=== PATIENT | female | born 1975 | race Caucasian/White ===

== ENCOUNTER → 2020-09-25 15:17 | Outpatient (CLI) | payer BC, SELFPAY ==
--- NOTE | ~2020-09-25 | US_ITS ---
EXAMINATION: US transvaginal DATE: 09/25/2020 15:43 INDICATION: Abnormal uterine bleeding Comparison:No prior studies for comparison. TECHNIQUE: Multiple endovaginal sonographic images of the pelvis performed. FINDINGS: The uterus measures 7.7 x 4.2 x 5.5 cm. There is a small uterine fibroid at the fundus bren uring 11 mm. The endometrial complex measures 8 mm. The right ovary measures 3.6 x 3.1 x 4.9 cm and the left ovary measures 2.9 x 2 x 2.6 cm. There is a 2.6 cm right ovarian cyst. There are small follicles in each ovary. There is no free fluid in the pelvis. There are no abnormal masses seen on either side. IMPRESSION: 1. 2.6 cm right ovarian cyst. 2: Uterine fibroid measuring 11 mm. Reviewed, dictated and finalized at location [facility]. [facility]
== END ==
PROVIDERS: Visit Provider Obstetrics & Gynecology
DX: N93.8 Other specified abnormal uterine and vaginal bleeding (principal); N83.201 Unspecified ovarian cyst, right side; D25.9 Leiomyoma of uterus, unspecified
CPT/HCPCS: 76830

== ENCOUNTER → 2021-04-01 02:04 | Outpatient (CLI) | payer BC, SELFPAY ==
[2021-04-01 23:32] LABS: SARS-CoV-2 RNA PCR Negative
== END ==
PROVIDERS: Visit Provider Obstetrics & Gynecology
DX: Z01.812 Encounter for preprocedural laboratory examination (principal); Z20.822 Contact with and (suspected) exposure to COVID-19
CPT/HCPCS: C9803; U0003; U0005

== ENCOUNTER 2021-04-01 13:21 | Outpatient (CLI) | payer BC, SELFPAY ==
--- NOTE | 2021-04-01 13:15 | ECG_ITS ---
Measurements Intervals [place] Rate: 73 P: 39 DC: 173 QRS: 14 QRSD: 104 T: 30 QT: 393 QTc: 435 Interpretive Statements SINUS RHYTHM VENTRICULAR PREMATURE COMPLEX CONSIDER INFERIOR INFARCT, AGE INDETERMINATE BORDERLINE T WAVE ABNORMALITY- ANTERIOR LEADS BASELINE ARTIFACT- I, II, III, AVR, AVL, AVF ABNORMAL ECG Electronically Signed On 04-01-2021 19:07:55 CDT by Lenin Suresh D.O.
[2021-04-01 14:37] LABS: Anion Gap 11 mmol/L (8-16); Blood Urea Nitrogen 7 mg/dL (7-17); Calcium 9.4 mg/dL (8.4-10.2); Carbon Dioxide 26 mmol/L (22-30); Chloride 105 mmol/L (98-107); Estimated Glomerular Filt Rate > 60; Glucose 116 mg/dL (65-105); Potassium 4.1 mmol/L (3.4-5.0); Sodium 142 mmol/L (137-145)
== END 2021-04-01 13:22 | disposition home or self-care (01) ==
LOC: ANHSURGERY 13:25
PROVIDERS: Anesthesiology; PCP Physician Assistant; Visit Provider Obstetrics & Gynecology
DX: N93.9 Abnormal uterine and vaginal bleeding, unspecified (principal); E11.9 Type 2 diabetes mellitus without complications; Z01.818 Encounter for other preprocedural examination; R94.31 Abnormal electrocardiogram [ECG] [EKG]
CPT/HCPCS: 36415; 80048; 86850; 86900; 86901; 93005

== ENCOUNTER 2021-04-04 00:13 | Day surgery (SDC) | payer BC, SELFPAY ==
[2021-03-27 14:49] VITALS: BMI 33.7
--- NOTE | 2021-04-03 14:34 | WPDANESEPPF ---
Anes - Initial Pre Proc Eval Procedure: Operation Date: 04/04/21 12:00 Proposed Procedures p Laparoscopic Assisted Vaginal Hysterectomy - Alfred Wright MD Date/Time: 04/03/21 14:34 Surgeon: Alfred Wright MD Pre Op Diagnosis: Abnormal Uterine Bleeding Patient Data Age: 45 Gender: F Height: 1.78 m Weight: 106.81 kg Allergies Allergy/AdvReac Type Severity Reaction Status Date / Time Sulfa (Sulfonamide Allergy Unknown rash, sob Verified 03/27/21 14:20 Antibiotics) sulfamethizole Allergy Unknown Dyspnea / Verified 03/27/21 14:20 SOB trimethoprim Allergy Unknown Dyspnea / Verified 03/27/21 14:20 SOB Home Medications Medication Instructions Recorded Confirmed Type albuterol sulfate [Ventolin HFA] 2 puff INHALATION QID #8 gm 09/23/19 03/27/21 Rx desvenlafaxine succinate [Pristiq] 100 mg PO DAILY 09/23/19 03/27/21 History metformin 500 mg PO BID 09/23/19 03/27/21 History coenzyme Q10 [CoQ-10] 100 mg PO DAILY 03/27/21 03/27/21 History norethindrone-e.estradiol-iron [Lo 1 tablet PO DAILY 03/27/21 03/27/21 History Loestrin Fe] rosuvastatin 10 mg PO DAILY 03/27/21 03/27/21 History Patient hx anesthesia problems: none Family hx anesthesia problems: none PMFSH Past Medical History Medical History (Updated 04/04/21 @ 09:45 by Alfred Wright MD) Abnormal uterine bleeding (AUB) Anxiety Chronic GERD Depression Hypercholesterolemia Leiomyoma Obesity PCOS (polycystic ovarian syndrome) Surgical History Surgical History H/O tubal ligation History of tonsillectomy and adenoidectomy Family History Family History Father Hypertension Other Diabetes mellitus Family history of cardiovascular disease Social History Social History Smoking status: Never smoker Alcohol intake: current Alcohol use details: 2 drinks a month Substance use: never Living arrangements: with family Spiritual care concerns: No Anes - Eval Final PreProcedure Day of Procedure 04/03/21 14:34 Patient weight: obese Heart: regular rate and rhythm Lungs: clear to auscultation and normal air movement Airway: Mallampati scale class II Neurological: alert and oriented Last oral intake: >/= 8 hours ASA classification: III Emergent: no Anesthetic plan: proceed Anesthesia type and monitoring: general ETT Informed Consent: The patient's anesthetic plan and its attendant risks and benefits were discussed with the patient/family/POA. Questions were solicited and answers provided to the satisfaction of the patient/family/POA.
[2021-04-04] VITALS (9 sets, daily range): BP systolic 101–141; BP diastolic 67–101; PULSE 65–90; RESP 14–19; TEMP 36.6–36.9; O2SAT 92–100
--- NOTE | 2021-04-04 09:33 | PM.IMHP ---
H&P: HPI History of Present Illness Date/Time: 04/04/21 09:33 45 y/o with a history of irregular heavy cycles. patient has a history of PCOS and has tried ocp therapy in the past and failed. Patient desires hysterectomy Chief Complaint: irregular bleeding Review of Systems Constitutional: Constitutional: Reports fatigue PMF Past Medical History Medical History (Updated 04/04/21 @ 09:45 by Alfred Wright MD) Abnormal uterine bleeding (AUB) Anxiety Chronic GERD Depression Hypercholesterolemia Leiomyoma Obesity PCOS (polycystic ovarian syndrome) Surgical History Surgical History H/O tubal ligation History of tonsillectomy and adenoidectomy Family History Family History Father Hypertension Other Diabetes mellitus Family history of cardiovascular disease Social History Social History Smoking status: Never smoker Alcohol intake: current Alcohol use details: 2 drinks a month Substance use: never Living arrangements: with family Spiritual care concerns: No Meds Home Medications and Allergies Home Medications Medication Instructions Recorded Confirmed Type albuterol sulfate [Ventolin HFA] 2 puff INHALATION QID #8 gm 09/23/19 03/27/21 Rx desvenlafaxine succinate [Pristiq] 100 mg PO DAILY 09/23/19 03/27/21 History metformin 500 mg PO BID 09/23/19 03/27/21 History coenzyme Q10 [CoQ-10] 100 mg PO DAILY 03/27/21 03/27/21 History norethindrone-e.estradiol-iron [Lo 1 tablet PO DAILY 03/27/21 03/27/21 History Loestrin Fe] rosuvastatin 10 mg PO DAILY 03/27/21 03/27/21 History Allergies Allergy/AdvReac Type Severity Reaction Status Date / Time Sulfa (Sulfonamide Allergy Unknown rash, sob Verified 03/27/21 14:20 Antibiotics) sulfamethizole Allergy Unknown Dyspnea / Verified 03/27/21 14:20 SOB trimethoprim Allergy Unknown Dyspnea / Verified 03/27/21 14:20 SOB Exam Const: General: well developed and alert Nutritional Appearance: obese Resp: Auscultation: clear to auscultation bilaterally Cardio: Rate: regular rate Rhythm: regular rhythm GI: Other: soft nontender : Speculum Exam - Cervix: normal appearance of the cervix and Cervical os closed Bimanual exam- vagina & uterus: normal bimanual exam Assessment and Plan Assessment and plan (1) Abnormal uterine bleeding (AUB): Code(s): N93.9 - Abnormal uterine and vaginal bleeding, unspecified Status: Acute Assessment and Plan: scheduled for a laparoscopic assisted vaginal hysterectomy with bilateral salpingectomy. risk and benefits reviewed in detail with patient.
[2021-04-04] MEDS: ACETAMINOPHEN 500 MG TABLET 1000 MG PO (10:32)
[2021-04-04] MEDS: KETOROLAC 15 MG/ML VIAL (*BKC) IV PUSH (10:33)
[2021-04-04] MEDS: LACTATED RINGERS 1,000 ML 30 ML IV CONT ×2 (10:33→14:40)
[2021-04-04 10:52] LABS: Glucose Point of Care 93 mg/dl (65-105)
--- NOTE | 2021-04-04 11:36 | WPDHPUPDATE1 ---
History and Physical Update Update Date/Time: 04/04/21 11:36 History and Physical has been reviewed, including an updated exam of the patient. There are NO changes in the patient's condition. Risks, benefits, and alternatives have been discussed and questions answered. Patient agrees to proceed with procedure.
[2021-04-04] MEDS: ceFAZolin 2 GM/D5W 50 ML 2 GM/50 ML BAG IVPB (12:00)
[2021-04-04] MEDS: LIDO 1%/EPINEPHRINE 1:100,000 50 ML VIAL 17 ML INFILTRATE (12:38)
[2021-04-04] MEDS: fentaNYL CITRATE INJ (*CRX) 100 MCG/2 ML VIAL 25 MCG IV PUSH ×2 (15:40→15:46)
--- NOTE | 2021-04-04 16:05 | PC.NURSE ---
This patient, Ellen Melgoza, was received from PACU on 04/04/21 at 1605. Patient/family oriented to unit policies and routines
[2021-04-04] MEDS: KETOROLAC 30 MG/ML VIAL (*BKC) IV PUSH (16:53)
[2021-04-04] MEDS: HYDROcodone/acetaminophen (*CRX) 10-325 MG TABLET 1 TAB PO ×2 (16:53→19:58)
[2021-04-04] MEDS: LACTATED RINGERS 1,000 ML 125 ML IV CONT (16:54)
[2021-04-04] MEDS: ESTRADIOL 7 DAY 0.05 MG PATCH TRANSDERM (18:57)
[2021-04-04] MEDS: DEXTROSE 5%/0.45% SOD CHL 1,000 ML 125 ML IV CONT (19:03)
[2021-04-04] MEDS: SENNA/DOCUSATE SODIUM TABLET 2 TAB PO (22:26)
[2021-04-05] MEDS: HYDROcodone/acetaminophen (*CRX) 5-325 MG TABLET 1 TAB PO (00:50)
[2021-04-05] MEDS: KETOROLAC 30 MG/ML VIAL (*BKC) IV PUSH (00:57)
[2021-04-05] MEDS: ONDANSETRON INJ 4 MG/2 ML VIAL IV PUSH (01:00)
[2021-04-05 01:06] VITALS: BP 130/79; PULSE 70; RESP 18; TEMP 37.2; O2SAT 97
[2021-04-05] MEDS: DEXTROSE 5%/0.45% SOD CHL 1,000 ML 125 ML IV CONT (03:23)
[2021-04-05] MEDS: HYDROcodone/acetaminophen (*CRX) 10-325 MG TABLET 1 TAB PO (03:26)
[2021-04-05 05:45] VITALS: BP 116/79; PULSE 84; RESP 16; TEMP 37.3; O2SAT 95
[2021-04-05 06:02] LABS: Basophils Percent Auto 0.3 % (0.2-1.2); Eosinophils Percent Auto 0.1 % (0-4.4); Hematocrit 27.8 % (37.0-47.0); Hemoglobin 8.9 g/dL (12.0-15.0); Immature Granulocyte Absolute 0.05 K/mm3 (0.00-0.031); Immature Granulocyte Percent A 0.4 % (0-0.5); Lymphocytes Absolute Auto 1.91 K/mm3 (0.9-3.2); Lymphocytes Percent Auto 16.4 % (18.3-44.2); Mean Corpuscular Volume 81.3 fl (80-100); Mean Platelet Volume 9.1 fl (7.4-10.4); Monocytes Absolute Auto 1.1 K/mm3 (0.1-0.6); Monocytes Percent Auto 9.6 % (2.6-8.5); Neutrophils Absolute Auto 8.5 K/mm3 (1.3-6.7); Neutrophils Percent Auto 73.2 % (45.5-73.1); Platelet Count Result 322 k/mm3 (150-375); Red Blood Count 3.42 M/mm3 (4.2-5.4); White Blood Count 11.7 K/mm3 (4.5-10.0)
[2021-04-05 06:17] LABS: Anion Gap 7 mmol/L (8-16); Blood Urea Nitrogen 9 mg/dL (7-17); Calcium 8.5 mg/dL (8.4-10.2); Carbon Dioxide 24 mmol/L (22-30); Chloride 104 mmol/L (98-107); Estimated CRCL calculation 118 ml/min; Estimated Glomerular Filt Rate > 60; Glucose 140 mg/dL (65-105); Potassium 3.7 mmol/L (3.4-5.0); Sodium 135 mmol/L (137-145)
--- NOTE | 2021-04-05 09:18 | WPDANESPN ---
Anes - Prog Note Post-Op Date/Time: 04/05/21 09:18 Cardiovascular status: normal Respiratory status: normal Airway patency: baseline Mental status: baseline Post-Op hydration status: normal Vital Signs: Last Vital Signs Temp 37.3 C 04/05/21 05:45 Pulse 84 04/05/21 05:45 Resp 16 04/05/21 05:45 BP 116/79 04/05/21 05:45 Pulse Ox 95 04/05/21 05:45 Pain Score (VAS): 3 I/O: Intake & Output 04/04/21 04/05/21 04/05/21 23:59 07:59 15:59 Intake Total 300 1490 Output Total 240 675 Balance 60 815 Laboratory Tests 04/05/21 05:47 04/05/21 05:47 04/04/21 04/05/21 04/05/21 10:45 05:47 05:47 WBC 11.7 H RBC 3.42 L Hgb 8.9 L Hct 27.8 L MCV 81.3 MCH 26.0 MCHC 32.0 RDW 15.0 H Plt Count 322 MPV 9.1 Immature Gran % (Auto) 0.4 Neut % (Auto) 73.2 H Lymph % (Auto) 16.4 L [place] % (Auto) 9.6 H Eos % (Auto) 0.1 Baso % (Auto) 0.3 Lymph # (Auto) 1.91 [place] # (Auto) 1.1 H Eos # (Auto) 0.0 Baso # (Auto) 0.0 Abs Immat Gran (auto) 0.05 H Absolute Neuts (auto) 8.5 H Absolute Nucleated RBC 0.0 Nucleated RBC % 0.0 Sodium 135 L Potassium 3.7 Chloride 104 Carbon Dioxide 24 Anion Gap 7 L BUN 9 Creatinine 0.70 Estim Creat Clear Calc 118 Estimated GFR > 60 Glucose 140 H POC Capillary Glucose 93 Calcium 8.5 Post-procedural complaints: none Patient Feedback: Patient satisfied with anesthetic care.
[2021-04-05 11:00] VITALS: BP 116/81; PULSE 80; RESP 16; TEMP 36.8; O2SAT 94
--- NOTE | 2021-04-05 11:56 | PM.GYNPNOP ---
[employer] - A/P Postoperative Procedures: Procedures Operation Date: 04/04/21 12:00 Actual Procedure Side Surgeon p Laparoscopic Assisted Vaginal Hysterectomy, Bilateral Salpingo-oophorectomy Not Applicable Alfred Wright MD Postoperative day: 1 Postoperative status: doing well Postoperative plan: discharge and other (prefers just tylenol and motrin; plan estradiol patch) Time Spent With Patient Time: Total time spent is greater than 50% in coordination of care (as documented) at patient's floor/unit and/or counseling patient: Time with patient: less than 15 minutes [employer] [employer]- PN:Subj Post-Op Subjective Date/time seen: 04/05/21 11:56 Subjective: patient has no complaints, pain is well controlled and patient is tolerating oral intake Exam Narrative: Exam Narrative: inc c/d/i abdomen soft, nt [employer] - PN: Obj Data Vital Signs Vital Signs: Vital Signs - 24 hr 04/04/21 14:40 04/04/21 14:55 04/04/21 15:10 Temperature 98.3 F Pulse Rate 67 74 74 Respiratory Rate 15 19 19 Blood Pressure 101/68 109/67 116/77 Pulse Oximetry 99 99 92 04/04/21 15:25 04/04/21 15:40 04/04/21 15:55 Temperature Pulse Rate 69 65 68 Respiratory Rate 14 18 17 Blood Pressure 111/80 117/71 122/74 Pulse Oximetry 93 92 92 04/04/21 20:00 04/05/21 01:06 04/05/21 05:45 Temperature 98.4 F 99 F 99.2 F Pulse Rate 69 70 84 Respiratory Rate 16 18 16 Blood Pressure 109/74 130/79 116/79 Pulse Oximetry 98 97 95 Intake/Output Intake/Output: Intake & Output 04/02/21 04/03/21 04/04/21 04/05/21 23:59 23:59 23:59 23:59 Intake Total 550 1490 Output Total 380 675 Balance 170 815 Meds/Results Medications: Active Medications Generic Name Dose Route Start Last Admin Trade Name Freq PRN Reason Stop Dose Admin Hydrocodone Bitart/Acetaminophen 1 tab 04/04/21 14:26 04/05/21 00:50 Hydrocodone/Acetaminophen (*Crx) 5-325 Mg Tablet PO 1 tab Q3H PRN Administration Pain Rated 5 or Less Hydrocodone Bitart/Acetaminophen 1 tab 04/04/21 14:26 04/05/21 03:26 Hydrocodone/Acetaminophen (*Crx) 10-325 Mg Tablet PO 1 tab Q3H PRN Administration Pain Rated 6 or Greater Estradiol 0.05 mg 04/04/21 09:00 04/04/21 18:57 Estradiol 7 Day 0.05 Mg Patch TRANSDERM 0.05 mg WEEKLY CHAITANYA Administration Lactated Ringer's 1,000 mls @ 30 mls/hr 04/03/21 14:25 04/04/21 16:54 Lr - Lactated Ringers Iv IV CONT 125 mls/hr .Q24H CHAITANYA Administration Dextrose/Sodium Chloride 1,000 mls @ 125 mls/hr 04/04/21 14:30 04/05/21 03:23 Dextrose 5% Sodium Chloride 0.45% IV CONT 125 mls/hr .Q8H CHAITANYA Administration Ibuprofen 600 mg 04/04/21 14:26 Ibuprofen 600 Mg Tablet PO Q6H PRN Cramping Ketorolac Tromethamine 30 mg 04/04/21 14:26 04/05/21 00:57 Ketorolac 30 Mg/Ml Vial (*Bkc) IV PUSH 04/09/21 14:27 30 mg Q6H PRN Administration Pain Rated 4-6 Metformin HCl 500 mg 04/04/21 17:00 04/04/21 22:27 Metformin Hcl 500 Mg Tablet PO Not Given BIDWM CHAITANYA Naloxone HCl 0.1 mg 04/04/21 14:26 Naloxone Hcl 0.4 Mg/Ml Vial IV PUSH Q2M PRN Respiratory rate less than 10 Nonformulary Drug ( 0 mg 04/05/21 09:00 Desvenlafaxine PO 05/05/21 09:01 Succinate [Pristiq] DAILY CHAITANYA 50 Mg Tablet Extended Release 24 Hr Non-Formulary Medication 1 tablet 04/05/21 09:00 Norethindrone-E.Estradiol-Iron [Lo Loestrin Fe] PO 05/05/21 09:01 DAILY CHAITANYA Ondansetron HCl 4 mg 04/04/21 14:26 04/05/21 01:00 Ondansetron Inj 4 Mg/2 Ml Vial IV PUSH 4 mg Q6H PRN Administration Nausea And Vomiting Rosuvastatin Calcium 10 mg 04/05/21 09:00 Rosuvastatin 10 Mg Tablet PO DAILY CHAITANYA Senna/Docusate Sodium 2 tab 04/04/21 21:00 04/04/21 22:26 Senna/Docusate Sodium Tablet PO 2 tab HS CHAITANYA Administration Simethicone 80 mg 04/04/21 14:26 Simethicone 80 Mg Tab.Chew PO Q2H PRN Gas Labs CBC & Chem 7: 04/05/21 05:47
[2021-04-05] MEDS: IBUPROFEN 600 MG TABLET PO (11:58)
[2021-04-05] MEDS: metFORMIN HCL 500 MG TABLET PO (11:59)
[2021-04-05] MEDS: ROSUVASTATIN 10 MG TABLET PO (11:59)
--- NOTE | 2021-04-07 06:46 | OP_ITS ---
DATE OF PROCEDURE: 04/04/2021 ANESTHESIA: General with ET tube. PREOPERATIVE DIAGNOSIS: Abnormal uterine bleeding. POSTOPERATIVE DIAGNOSIS: Abnormal uterine bleeding. PROCEDURE: Laparoscopically-assisted vaginal hysterectomy with bilateral salpingo-oophorectomy. DESCRIPTION OF PROCEDURE: The patient was taken to the operating room, placed in a dorsal lithotomy position. She was prepared and draped in a normal sterile fashion. A Acosta catheter was placed into the vagina. A bivalve speculum was placed in the vagina to visualize the cervix. The anterior and posterior lips of the cervix were grasped with single-tooth tenaculum. The uterus was sounded to 8 cm and an Bronson uterine manipulator was introduced. The speculum was removed. Attention was then turned to the abdomen. Following infiltration with 1% lidocaine, an infraumbilical incision was made and the Veress needle was gently advanced taking care to produce a typical sensation of penetrating the peritoneum with CO2 infiltration. An opening pressure of 3 mmHg was noted, and following this, a pneumoperitoneum of 15 was created. A 5 mm trocar was then passed through the same incision under direct visualization with the laparoscope. the patient did not reveal any signs of complications from entry. Under direct observation, 5 mm plain ports were placed laterally on both the right and left sides.. Once the placement of the ports were completed, the laparoscopic procedure began. Beginning on the left side, the infundibular ligament was identifiable on the anterior wall of the abdomen. The ureter identified on the sidewall and the Harmonic Scalpel device was then used to clamp and ligate the IP ligament. the broad ligament was sequentially grasped, ligated, and cut in the direction of the round ligament next to the fallopian tube. The round ligament was then ligated and cut and the anterior leaflet of the broad ligament was then taken down on the left side way to the bladder in addition to the cervix. The same process was then repeated on both sides appropriately skeletonized. To ensure excellent hemostasis prior to further manipulation, the pedicles of the cardinal ligament were ligated and divided on both sides using the Harmonic Scalpel. Attention was then turned to the final aspect of the surgery. The Acosta catheter was left in place. A weighted speculum was placed in the posterior aspect of the vagina and the manipulator was removed. The tenaculum was repositioned on the anterior and posterior portion of the cervix. A circumferential incision was made at the cervical vaginal reflection with a scalpel after injecting with 1% lidocaine. This was undermined 1st posteriorly and making a colpotomy, and then anteriorly. Caroline retractors were then placed into each of these incisions, beginning 1st on the patient's left and the uterosacral cardinal ligaments were clamped, divided, and suture ligated. Two bites were required to reach the previous dissection margin on the left side. The same process was then repeated on the patient's right side and the sutures have been placed and the pedicles examined for hemostasis. The pedicles were then inspected and a stitch was placed on the patient's right for hemostasis. The vaginal vault was then oversewn with a running nonlocking Vicryl suture and good hemostasis was obtained. A running locked suture was placed across the vaginal vault to close it.. The vagina was packed with a moist laparotomy sponge and all instruments were removed from the vagina. Attention was then again turned to the abdomen for a careful inspection to ensure hemostasis. Hemostasis was assured and the ports were then removed under direct visualization and the incisions were then closed with 0 Vicryl suture in a
== END 2021-04-05 13:25 | disposition home or self-care (01) ==
LOC: ANHSURGERY 09:35 → ANHOB2 16:00
PROVIDERS: PCP Physician Assistant; Visit Provider Obstetrics & Gynecology
PROC: 0UT9FZZ Resection of Uterus, Via Natural or Artificial Opening With Percutaneous Endoscopic Assistance (ICD-10-PCS; CPT 58552; principal; 2021-04-04 12:00)
DX: N93.9 Abnormal uterine and vaginal bleeding, unspecified (principal); N83.8 Other noninflammatory disorders of ovary, fallopian tube and broad ligament; N80.0 Endometriosis of uterus; N83.02 Follicular cyst of left ovary; N73.6 Female pelvic peritoneal adhesions (postinfective); D25.1 Intramural leiomyoma of uterus; N83.01 Follicular cyst of right ovary; K21.9 Gastro-esophageal reflux disease without esophagitis; F41.8 Other specified anxiety disorders; E78.00 Pure hypercholesterolemia, unspecified; E28.2 Polycystic ovarian syndrome; E66.9 Obesity, unspecified; Z68.33 Body mass index [BMI] 33.0-33.9, adult; Z79.84 Long term (current) use of oral hypoglycemic drugs; Z79.51 Long term (current) use of inhaled steroids
CPT/HCPCS: 58552; 36415; 80048; 82948; 85025; 86850; 86900; 86901; 88307; 93005; 99199; A9270; C9803; J0690; J1100; J1170; J1885; J2250; J2405; J2704; J2710; J3010; J7030; J7120; U0003; U0005

== ENCOUNTER 2021-07-30 11:04 | Outpatient (CLI) | payer BC, SELFPAY ==
[2021-07-30 13:53] LABS: Iron 32 ug/dL (37-170)
[2021-07-30 14:05] LABS: Percent Iron Saturation 7 % (20-50)
[2021-07-30 14:32] LABS: Ferritin 4.88 ng/mL (6.24-137)
== END 2021-07-30 11:05 | disposition home or self-care (01) ==
PROVIDERS: PCP Physician Assistant
DX: K21.9 Gastro-esophageal reflux disease without esophagitis (principal); D64.9 Anemia, unspecified
CPT/HCPCS: 36415; 82607; 82728; 83540; 83550

== ENCOUNTER 2021-08-05 08:55 | Outpatient (CLI) | payer BC, SELFPAY ==
--- NOTE | 2021-08-08 12:57 | WPDHOLTEREM ---
Holter/Event Monitor Holter/Event Monitor Date of procedure: 08/05/21 Holter/Event Procedure: 48 Hr Holter Monitor Indications: Dizziness Conclusion: 1. 48 hour holter monitor on 08/05/21. 2. Underlying rhythm is sinus rhythm. HR range 47-136 bpm; average HR 80 bpm. 3. There are 479 premature supraventricular complexes. No supraventricular tachycardia. 4. There are 2,420 premature ventricular complexes, 27 ventricular trigeminy. No ventricular tachycardia. 5. No sinoatrial or atrioventricular blocks. No significant pauses greater than 2 seconds. 6. No symptoms available for correlation.
== END 2021-08-05 08:56 | disposition home or self-care (01) ==
LOC: ANHCARD 08:56
PROVIDERS: PCP Physician Assistant; Visit Provider Physician Assistant
DX: R42 Dizziness and giddiness (principal)
CPT/HCPCS: 93225; 93226

== ENCOUNTER 2021-10-21 08:58 | Outpatient (CLI) | payer BC, SELFPAY ==
[2021-10-21 09:42] LABS: Alanine Aminotransferase 36 U/L (4-35); Albumin Level 4.6 g/dL (3.5-5.1); Alkaline Phosphatase 89 U/L (38-126); Anion Gap 6 mmol/L (8-16); Aspartate Amino Transferase 34 U/L (14-36); Bilirubin,Total 0.6 mg/dL (0.2-1.3); Blood Urea Nitrogen 11 mg/dL (7-17); Carbon Dioxide 29 mmol/L (22-30); Chloride 102 mmol/L (98-107); Cholesterol 199 mg/dL (0-200); Estimated Glomerular Filt Rate > 60; Glucose 121 mg/dL (65-110); HDL Direct 54 mg/dL; Magnesium 1.9 mg/dL (1.6-2.3); Potassium 4.6 mmol/L (3.4-5.0); Sodium 137 mmol/L (137-145); Triglycerides 224 mg/dL (<150)
[2021-10-21 09:53] LABS: LDL Cholesterol Direct 98 mg/dL
== END 2021-10-21 08:59 | disposition home or self-care (01) ==
LOC: ANHLAB 09:12
PROVIDERS: PCP Physician Assistant; Visit Provider Specialist
DX: R00.2 Palpitations (principal); I49.3 Ventricular premature depolarization
CPT/HCPCS: 36415; 80053; 80061; 83735

== ENCOUNTER 2023-03-27 19:10 | Emergency (ER) | payer BC, SELFPAY ==
[2023-03-27 19:18] VITALS: BP 148/92; PULSE 74; RESP 16; TEMP 37.2; O2SAT 99
--- NOTE | 2023-03-27 19:41 | ED.URI ---
HPI - URI/Sore Throat General Chief Complaint: Upper Respiratory Infection Stated Complaint: cold / cough / congestion Time Seen by Provider: 03/27/23 19:41 Source: patient and RN notes reviewed Mode of arrival: ambulatory Limitations: no limitations History of Present Illness HPI Narrative: 47-year-old female presenting for complaint of cough cold symptoms for about 1 month, and associated chest tightness for about 2 weeks. States he feels like the drainage has settled in her chest. She states she tried expectorant today but does not like how they make her feel. Endorses hoarse voice and shortness of breath when walking up stairs today. Denies wheezing, dizziness, nausea, vomiting, fevers or chills. She is currently taking amoxicillin for tooth infection. MD elicited complaint: cough Related Data Home Medications Medication Instructions Recorded Confirmed desvenlafaxine succinate 100 mg 100 mg PO DAILY 09/23/19 04/04/21 tablet,extended release 24 hr (Pristiq) metformin 500 mg tablet,extended 500 mg PO BID 09/23/19 04/04/21 release 24 hr coenzyme Q10 100 mg capsule 100 mg PO DAILY 03/27/21 04/04/21 (CoQ-10) rosuvastatin 10 mg tablet 10 mg PO DAILY 03/27/21 04/04/21 buspirone 10 mg tablet mg 03/27/23 lamotrigine 25 mg tablet mg 03/27/23 levothyroxine 50 mcg tablet mcg 03/27/23 rosuvastatin 10 mg tablet mg 03/27/23 zolpidem 10 mg tablet mg 03/27/23 Allergies Allergy/AdvReac Type Severity Reaction Status Date / Time Sulfa (Sulfonamide Allergy Unknown rash, sob Verified 04/04/21 11:06 Antibiotics) sulfamethizole Allergy Unknown Dyspnea / Verified 04/04/21 11:06 SOB trimethoprim Allergy Unknown Dyspnea / Verified 04/04/21 11:06 SOB Review of Systems Review of Systems: CONSTITUTIONAL: Denies malaise, chills, sweats, fever EYES: Denies visual changes, redness, or discharge ENT: Reports rhinorrhea, congestion, denies sinus pain, otalgia, sore throat CARDIOVASCULAR: Denies chest pain, palpitations, edema RESPIRATORY: Reports cough, post nasal drainage. Denies dyspnea GASTROINTESTINAL: Denies abdominal pain, nausea, vomiting, diarrhea SKIN: Denies rash or itching MUSCULOSKELETAL: denies myalgia NEUROLOGIC: Denies headache [facility] Past Medical History Medical History Abnormal uterine bleeding (AUB) Anxiety Chronic GERD Depression Hypercholesterolemia Leiomyoma Obesity PCOS (polycystic ovarian syndrome) Surgical History Surgical History H/O tubal ligation History of tonsillectomy and adenoidectomy Family History Family History Father Hypertension Other Diabetes mellitus Family history of cardiovascular disease Social History Social History Smoking status: Never smoker Alcohol intake: current Alcohol use details: 2 drinks a month Substance use: never Living arrangements: with family Spiritual care concerns: No Exam Narrative: GENERAL: well-appearing, nontoxic EYES: PERRLA, conjunctivae clear ENT: Mucous membranes moist. TMs pearly zeng with dull light reflex bilaterally; no tragal tenderness. Oropharynx erythematous without lesions or exudate NECK: Supple. No lymphadenopathy CHEST: Clear to auscultation, breath sounds equal. No wheezing, rhonchi, rales, or stridor. No respiratory distress, speaks in full sentences. HEART: Regular rate and rhythm. No murmur heard. SKIN: Warm, dry, no rash. NEURO: Alert and oriented x3. PSYCH: Normal mood and affect Course Course Emergency Course: Patient is aware of diagnosis, understands and agrees to treatment plan. Anticipatory guidance given. Patient agrees to follow-up as directed and is aware of reasons to seek care at the emergency department. Portions of this record ma
== END 2023-03-27 19:53 | disposition home or self-care (01) ==
PROVIDERS: Emergency Provider Nurse Practitioner Family; PCP Physician Assistant
DX: J40 Bronchitis, not specified as acute or chronic (principal); K21.9 Gastro-esophageal reflux disease without esophagitis; E78.00 Pure hypercholesterolemia, unspecified; E28.2 Polycystic ovarian syndrome; F32.A Depression, unspecified; F41.9 Anxiety disorder, unspecified
CPT/HCPCS: 99213; G0463

== ENCOUNTER 2023-07-02 19:05 | Emergency (ER) | payer BC, SELFPAY ==
--- NOTE | 2023-07-02 19:16 | ED.URI ---
HPI - URI/Sore Throat General Chief Complaint: Upper Respiratory Infection Stated Complaint: BODY ACHES/HEADACHE/HURTS TO BREATHE Source: patient and RN notes reviewed Mode of arrival: ambulatory Limitations: no limitations History of Present Illness HPI Narrative: 47 y/o female presented for c/o cough and body aches which started about 30 minutes IN MOLD COATER. States she felt sob while walking this evening. Also reports nausea and diarrhea x3 days following starting Ozempic. Patient states this is how she feels when she is allergic to a medication, reporting multiple medications cause these symptoms. States she feels dehydrated, stating she has not urinated in 5 hours. Has been drinking water and electrolyte replacement drinks. Taking imodium. Took ibuprofen 30min IN MOLD COATER for pains. Endorses dtr is sick with similar symptoms. Denies cp, palpitations, edema, lethargy, vomiting or fever. MD elicited complaint: cough Related Data Home Medications Medication Instructions Recorded Confirmed desvenlafaxine succinate 100 mg 100 mg PO DAILY 09/23/19 07/02/23 tablet,extended release 24 hr (Pristiq) metformin 500 mg tablet,extended 500 mg PO BID 09/23/19 07/02/23 release 24 hr rosuvastatin 10 mg tablet 10 mg PO DAILY 03/27/21 07/02/23 levothyroxine 50 mcg tablet 50 mcg PO DAILY 03/27/23 07/02/23 zolpidem 10 mg tablet mg 03/27/23 lorazepam 0.5 mg tablet 0.5 mg PO DAILY 07/02/23 07/02/23 Allergies Allergy/AdvReac Type Severity Reaction Status Date / Time Sulfa (Sulfonamide Allergy Unknown rash, sob Verified 07/02/23 19:13 Antibiotics) sulfamethizole Allergy Unknown Dyspnea / Verified 07/02/23 19:13 SOB trimethoprim Allergy Unknown Dyspnea / Verified 07/02/23 19:13 SOB Review of Systems Review of Systems: CONSTITUTIONAL: Denies malaise, chills, sweats, fever EYES: Denies visual changes, redness, or discharge ENT: Denies rhinorrhea, congestion, sinus pain, otalgia, sore throat CARDIOVASCULAR: Denies chest pain, palpitations, edema RESPIRATORY: Reports dyspnea on exertion GASTROINTESTINAL: Denies abdominal pain, vomiting. Reports nausea, diarrhea SKIN: Denies rash or itching MUSCULOSKELETAL: Endorses myalgia NEUROLOGIC: Endorses headache PMFSH Past Medical History Medical History Abnormal uterine bleeding (AUB) Anxiety Chronic GERD Depression Hypercholesterolemia Leiomyoma Obesity PCOS (polycystic ovarian syndrome) Surgical History Surgical History H/O tubal ligation History of tonsillectomy and adenoidectomy Family History Family History Father Hypertension Other Diabetes mellitus Family history of cardiovascular disease Social History Social History Smoking status: Never smoker Alcohol intake: current Alcohol use details: 2 drinks a month Substance use: never Living arrangements: with family Spiritual care concerns: No Exam Narrative: GENERAL: mildly Ill-appearing, nontoxic no acute distress. EYES: PERRLA, EOMI, conjunctivae clear ENT: Mucous membranes moist. TMs pearly zeng with dull light reflex bilaterally; no tragal tenderness. Oropharynx normal NECK: Supple. No VPT. Full ROM, No lymphadenopathy CHEST: Clear to auscultation, breath sounds equal. No wheezing, rhonchi, rales, or stridor. No respiratory distress, speaks in full sentences. HEART: Regular rate and rhythm. No murmur heard. SKIN: Warm, dry, no rash. NEURO: Alert and oriented x3. PSYCH: Normal mood and affect Course Course Emergency Course: Patient is aware of diagnosis, understands and agrees to treatment plan. Anticipatory guidance given. Patient agrees to follow-up as directed and is aware of reasons to seek care at the emergency department. Portions of this record may have
[2023-07-02 19:21] VITALS: BP 122/95; PULSE 95; RESP 16; TEMP 36.9; O2SAT 100
== END 2023-07-02 19:39 | disposition home or self-care (01) ==
PROVIDERS: Emergency Provider Nurse Practitioner Family
DX: J06.9 Acute upper respiratory infection, unspecified (principal); Z20.822 Contact with and (suspected) exposure to COVID-19; K21.9 Gastro-esophageal reflux disease without esophagitis; E78.00 Pure hypercholesterolemia, unspecified; E66.9 Obesity, unspecified; Z68.34 Body mass index [BMI] 34.0-34.9, adult; E28.2 Polycystic ovarian syndrome; F41.9 Anxiety disorder, unspecified; F32.A Depression, unspecified
CPT/HCPCS: 87426; 99213; C9803; G0463

== ENCOUNTER 2024-01-10 11:12 | Emergency (ER) | payer BC, SELFPAY ==
[2024-01-10 11:22] VITALS: BP 119/88; PULSE 97; RESP 20; TEMP 37.9; O2SAT 100
--- NOTE | 2024-01-10 11:31 | ED.URI ---
HPI - URI/Sore Throat General Chief Complaint: Upper Respiratory Infection Stated Complaint: throat/fever Time Seen by Provider: 01/10/24 11:30 Source: patient, RN notes reviewed and old records reviewed Mode of arrival: ambulatory Limitations: no limitations History of Present Illness HPI Narrative: 48 year old female who presents to [facility] care with complaints of sore throat, headache,body aches, neck pain, and fevers since Wednesday, Patient has been taking Tylenol and Ibuprofen for her symptoms. Patient reports that she has had fever highest noted of 100F. Patient reports that both sides of her neck are sore especially right side. MD elicited complaint: cough and sore throat Onset (ago): day(s) (day 4 of symptoms) Pain scale (0-10): 7 Able to tolerate fluids by mouth: Yes Exacerbating factors: swallowing Treatments prior to arrival: acetaminophen and ibuprofen Related Data Home Medications Medication Instructions Recorded Confirmed desvenlafaxine succinate 100 mg 100 mg PO DAILY 09/23/19 01/10/24 tablet,extended release 24 hr (Pristiq) metformin 500 mg tablet,extended 500 mg PO BID 09/23/19 01/10/24 release 24 hr rosuvastatin 10 mg tablet 10 mg PO DAILY 03/27/21 01/10/24 levothyroxine 50 mcg tablet 50 mcg PO DAILY 03/27/23 01/10/24 zolpidem 10 mg tablet 10 mg PO DAILY 03/27/23 01/10/24 lorazepam 0.5 mg tablet 0.5 mg PO DAILY 07/02/23 01/10/24 oxcarbazepine 300 mg tablet 300 mg PO TID 01/10/24 01/10/24 Allergies Allergy/AdvReac Type Severity Reaction Status Date / Time Sulfa (Sulfonamide Allergy Unknown rash, sob Verified 07/02/23 19:13 Antibiotics) sulfamethizole Allergy Unknown Dyspnea / Verified 07/02/23 19:13 SOB trimethoprim Allergy Unknown Dyspnea / Verified 07/02/23 19:13 SOB Review of Systems Review of Systems: CONSTITUTIONAL: Reports malaise, chills, sweats, or fever. EYES: Denies visual changes, redness, or discharge. ENT: Reports rhinorrhea, congestion, sinus pain, no otalgia and positive for sore throat. CARDIOVASCULAR: Denies chest pain, palpitations, or edema. RESPIRATORY: Reports no cough.? Denies dyspnea. GASTROINTESTINAL: Denies abdominal pain, nausea, vomiting, diarrhea SKIN: Denies rash or itching. MUSCULOSKELETAL: reports myalgia. NEUROLOGIC: Positive for headache. All systems reviewed & are unremarkable except as noted in HPI and below PMFSH Past Medical History Medical History Abnormal uterine bleeding (AUB) Anxiety Chronic GERD Depression Hypercholesterolemia Leiomyoma Obesity PCOS (polycystic ovarian syndrome) Surgical History Surgical History H/O tubal ligation History of tonsillectomy and adenoidectomy Family History Family History Father Hypertension Other Diabetes mellitus Family history of cardiovascular disease Social History Social History Smoking status: Never smoker Alcohol intake: current Alcohol use details: 2 drinks a month Substance use: never Living arrangements: with family Spiritual care concerns: No Comments At time of signature, agree with nursing past medical, surgical, social and family history. There is no relevant family history pertinent to the presenting complaint Exam Narrative: GENERAL: Well-appearing, well-nourished, and in no acute distress. HEAD: Normocephalic EYES: PERRLA, conjunctivae clear ENT: Nares clear, turbinates edematous and erythematous, clear discharge. Mucous membranes moist. TM pearly zeng with dull light reflex bilaterally; no tragal tenderness. Oropharynx erythematous without lesions. Tonsils not present and throat without exudate, no drooling, no hoarseness, no trismus, uvula midline. some post nasal drainage noted NECK: Supple. lymphade
[2024-01-10 11:37] VITALS: BP 119/88; PULSE 97; RESP 20; TEMP 37.9; O2SAT 100
== END 2024-01-10 12:02 | disposition home or self-care (01) ==
PROVIDERS: Emergency Provider Registered Nurse
DX: J02.0 Streptococcal pharyngitis (principal); Z20.822 Contact with and (suspected) exposure to COVID-19; K21.9 Gastro-esophageal reflux disease without esophagitis; E78.00 Pure hypercholesterolemia, unspecified; E66.9 Obesity, unspecified; Z68.35 Body mass index [BMI] 35.0-35.9, adult; E28.2 Polycystic ovarian syndrome; F41.9 Anxiety disorder, unspecified
CPT/HCPCS: 87426; 87804; 87880; 99213; G0463

== ENCOUNTER 2024-02-17 16:43 | Emergency (ER) | payer BC, SELFPAY ==
[2024-02-17 16:52] VITALS: BP 126/81; PULSE 97; RESP 16; TEMP 38.5; O2SAT 100
--- NOTE | 2024-02-17 16:57 | ED.URI ---
HPI - URI/Sore Throat General Chief Complaint: Upper Respiratory Infection Stated Complaint: poss strep throat Time Seen by Provider: 02/17/24 16:57 Source: patient, RN notes reviewed and old records reviewed Mode of arrival: ambulatory Limitations: no limitations History of Present Illness HPI Narrative: 48-year-old female to [facility] for complaint of sore throat for 24 hours. 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 Patient reports she had strep and was treated in December. Patient reports allergy to sulfa and trimethoprim. Patient febrile in triage. Patient in no acute distress. Able to tolerate fluids by mouth. Related Data Home Medications Medication Instructions Recorded Confirmed desvenlafaxine succinate 100 mg 100 mg PO DAILY 09/23/19 02/17/24 tablet,extended release 24 hr (Pristiq) metformin 500 mg tablet,extended 500 mg PO BID 09/23/19 01/10/24 release 24 hr rosuvastatin 10 mg tablet 10 mg PO DAILY 03/27/21 02/17/24 levothyroxine 50 mcg tablet 50 mcg PO DAILY 03/27/23 02/17/24 zolpidem 10 mg tablet 10 mg PO DAILY 03/27/23 02/17/24 lorazepam 0.5 mg tablet 0.5 mg PO DAILY 07/02/23 02/17/24 oxcarbazepine 300 mg tablet 300 mg PO TID 01/10/24 02/17/24 Allergies Allergy/AdvReac Type Severity Reaction Status Date / Time Sulfa (Sulfonamide Allergy Unknown rash, sob Verified 07/02/23 19:13 Antibiotics) sulfamethizole Allergy Unknown Dyspnea / Verified 07/02/23 19:13 SOB trimethoprim Allergy Unknown Dyspnea / Verified 07/02/23 19:13 SOB Review of Systems Review of Systems: All systems reviewed & are unremarkable except as noted in HPI and below Constitutional: Constitutional: Reports as per HPI, Denies fever(s) and Reports lethargy Eyes: Eyes: Reports no additional eye complaints ENT: Reports system reviewed and no additional complaints, except as documented and Reports sore throat Cardiovascular: Cardiovascular: Reports no additional cardiovascular complaints, Denies chest pain and Denies dyspnea Respiratory: Respiratory: Reports no additional respiratory complaints, Denies cough and Denies dyspnea Musculoskeletal: Musculoskeletal: Reports no additional musculoskeletal complaints Neurologic: Reports system reviewed and no additional complaints, except as documented Psychiatric: Psychiatric: Reports no additional psychiatric complaints PMFSH Past Medical History Medical History Abnormal uterine bleeding (AUB) Anxiety Chronic GERD Depression Hypercholesterolemia Leiomyoma Obesity PCOS (polycystic ovarian syndrome) Surgical History Surgical History H/O tubal ligation History of tonsillectomy and adenoidectomy Family History Family History Father Hypertension Other Diabetes mellitus Family history of cardiovascular disease Social History Social History Smoking status: Never smoker Alcohol intake: current Alcohol use details: 2 drinks a month Substance use: never Living arrangements: with family Spiritual care concerns: No Comments At the time of my signature, I reviewed and agree with the nursing past medical, surgical, social, and family history. There is no relevant family history pertinent to the patient complaint. Exam Const: General: cooperative, no acute distress, well developed, alert, awake, ill appearing acutely, tired appearing, uncomfortable, well groomed and well nourished Nutritional Appearance: well nourished Orientation/consciousness: patient oriented x3 Limitations: no limitations HENMT: Head: normal to inspection Ears: Abnormal EAC present erythema bilateral and diffuse; no EA tenderness and TM abnormal scarred bilateral Face/Nose/Sinus: Normal external nose present, Nor
== END 2024-02-17 17:39 | disposition home or self-care (01) ==
PROVIDERS: Emergency Provider Nurse Practitioner Family
DX: J02.0 Streptococcal pharyngitis (principal); Z20.822 Contact with and (suspected) exposure to COVID-19; K21.9 Gastro-esophageal reflux disease without esophagitis; E78.00 Pure hypercholesterolemia, unspecified; E66.9 Obesity, unspecified; Z68.35 Body mass index [BMI] 35.0-35.9, adult; E28.2 Polycystic ovarian syndrome; F41.9 Anxiety disorder, unspecified; F32.A Depression, unspecified
CPT/HCPCS: 87081; 87147; 87426; 87804; 87880; 99213; G0463

== ENCOUNTER 2024-08-15 13:16 | Emergency (ER) | payer BC, SELFPAY ==
[2024-08-15 13:22] VITALS: BP 129/80; PULSE 101; RESP 16; TEMP 37.8; O2SAT 98
[2024-08-15 13:44] LABS: EDCOVIDSCREEN Negative (Negative)
[2024-08-15 13:45] LABS: EDINFLUASCREEN Negative (Negative); EDINFLUBSCREEN Negative (Negative)
--- NOTE | 2024-08-15 13:53 | ED.URI ---
HPI - URI/Sore Throat General Chief Complaint: Upper Respiratory Infection Stated Complaint: Fever/Cough/Chills/Body Ache Time Seen by Provider: 08/15/24 13:35 Source: patient, RN notes reviewed and old records reviewed Mode of arrival: ambulatory Limitations: no limitations History of Present Illness HPI Narrative: 49 year old female who presents to [facility] care with complaints of 2 week duration of cough, chest congestion, body aches, sinus congestion, fevers and chills with increase in symptoms for the past 2 day with fevers and headaches.. Patient reports that she left work today because she felt so bad. 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 She reports that she has been taking Ibuprofen for her symptoms MD elicited complaint: fever, cough, rhinorrhea, nasal congestion, sinus pain and other (headache) Onset (ago): week(s) (2 weeks with increased symptoms for 2 days) Pain scale (0-10): 6 Able to tolerate fluids by mouth: Yes Treatments prior to arrival: ibuprofen Related Data Home Medications Medication Instructions Recorded Confirmed desvenlafaxine succinate 100 mg 100 mg PO DAILY 09/23/19 02/17/24 tablet,extended release 24 hr (Pristiq) metformin 500 mg tablet,extended 500 mg PO BID 09/23/19 01/10/24 release 24 hr rosuvastatin 10 mg tablet 10 mg PO DAILY 03/27/21 02/17/24 levothyroxine 50 mcg tablet 50 mcg PO DAILY 03/27/23 02/17/24 zolpidem 10 mg tablet 10 mg PO DAILY 03/27/23 02/17/24 lorazepam 0.5 mg tablet 0.5 mg PO DAILY 07/02/23 02/17/24 Allergies Allergy/AdvReac Type Severity Reaction Status Date / Time Sulfa (Sulfonamide Allergy Unknown rash, sob Verified 08/15/24 13:18 Antibiotics) sulfamethizole Allergy Unknown Dyspnea / Verified 08/15/24 13:18 SOB trimethoprim Allergy Unknown Dyspnea / Verified 08/15/24 13:18 SOB Review of Systems Review of Systems: CONSTITUTIONAL: Reports malaise, chills, sweats, or fever. EYES: Denies visual changes, redness, or discharge. ENT: Reports rhinorrhea, congestion, sinus pain, no otalgia and no sore throat. CARDIOVASCULAR: Denies chest pain, palpitations, or edema. RESPIRATORY: Reports cough.? Denies dyspnea. GASTROINTESTINAL: Denies abdominal pain, nausea, vomiting, diarrhea SKIN: Denies rash or itching. MUSCULOSKELETAL: Reports myalgia. NEUROLOGIC: Reports headache. All systems reviewed & are unremarkable except as noted in HPI and below PMFSH Past Medical History Medical History (Updated 08/16/24 @ 14:29 by Pari Copeland NP) Abnormal uterine bleeding (AUB) Anxiety Chronic GERD Depression History of sinus problem Hypercholesterolemia Leiomyoma Obesity PCOS (polycystic ovarian syndrome) Prediabetes Surgical History Surgical History H/O tubal ligation History of hysterectomy History of placement of ear tubes History of tonsillectomy and adenoidectomy Family History Family History Father Hypertension Other Diabetes mellitus Family history of cardiovascular disease Social History Social History Smoking status: Never smoker Alcohol intake: current Alcohol use details: 2 drinks a month Substance use: never Living arrangements: with family Spiritual care concerns: No Comments At time of signature, agree with nursing past medical, surgical, social and family history. There is no relevant family history pertinent to the presenting complaint Exam Narrative: GENERAL: Well-appearing, well-nourished, and in no acute distress. HEAD: Normocephalic EYES: PERRLA, conjunctivae clear ENT: Nares clear, turbinates edematous and erythematous, clear discharge. Mucous membranes moist. TM pearly zeng with dull light reflex bilaterally; no tragal tenderness. Oropharynx erythematou
== END 2024-08-15 14:19 | disposition home or self-care (01) ==
PROVIDERS: Emergency Provider Registered Nurse
DX: R05.9 Cough, unspecified (principal); J01.40 Acute pansinusitis, unspecified; Z20.822 Contact with and (suspected) exposure to COVID-19; K21.9 Gastro-esophageal reflux disease without esophagitis; E78.00 Pure hypercholesterolemia, unspecified; E28.2 Polycystic ovarian syndrome; R73.03 Prediabetes; E66.9 Obesity, unspecified; Z68.33 Body mass index [BMI] 33.0-33.9, adult; F41.9 Anxiety disorder, unspecified
CPT/HCPCS: 87426; 87804; 99213; G0463